=== PATIENT | female | born 1945 | race Caucasian/White ===

== ENCOUNTER → 2018-01-07 | Outpatient (CLI) | payer OTHER, BC ==
[~2018-01-07] VITALS: Ht 162.6 cm; Wt 70.3 kg
[~2018-01-07] MED LIST: ACETAMINOPHEN325 M1 OR; ALEVE220 MG PO; ASMANEX0.24 G1 INH; ASPIR 8181 M1 PO; DUONEB 2.5-0.5 M3 ML; GAVISCON LIQUI355 ML PO; IPRAT-ALBUT 0.5-3 ML INH; NEXIUM40 MG PO; PREDNISONE 10 M10 M1 PO; REGLAN 5 MG TAB5 M1 OR; SYMBICORT160 MCG/4. INH; SYNTHROID100 MC1 PO; SYNTHROID25 MC1 PO; THERA-M CAPLET1 EACH OR; VENTOLIN HFA 1818 GM INH; VENTOLIN17 GM; XANAX 0.25 MG0.25 MG PO; ZOCOR20 MG PO
--- NOTE | ~2018-01-07 | P ---
[facility] [place] [address] PROCEDURE REPORT Name: NIKIA PAGE Room #: REG [facility].#: [id number] Admission: 01/07/18 Attend Phys: Kingston Anand Discharge: Date of : 41 Report #: [id number] THIS REPORT FOR: //name// CC: Kingston King FAM unknown AMOS Clayton DATE OF SERVICE: 01/07/2018 PROCEDURE PERFORMED: Colonoscopy with biopsies. HISTORY OF PRESENT ILLNESS: The patient is a 72-year-old female with previous history of colon polyps, last colonoscopy in 1999, no immediate family members with colon cancer. DESCRIPTION OF PROCEDURE: The risks and benefits of the procedure were explained to the patient. Those risks including but not limited to bleeding, perforation and the risk of sedation. She understood these risks and gave informed consent. Sedation was given using propofol per anesthesia. Next, a digital rectal exam was initially performed, which was normal. Next, using a standard Olympus colonoscope, the scope was placed in the patient's anus and advanced under direct vision to the cecum. The overall prep was excellent. The cecum and ileocecal valve were normal in appearance. Ascending and transverse colon were normal. In the descending colon, two 3-4 mm sessile polyps were noted, both removed with cold forceps. Multiple diverticula were noted in the descending and sigmoid colon and no evidence of inflammation. The rectal mucosa was normal. On retroflexion, no abnormalities were noted. The scope was then withdrawn and the procedure terminated. The patient tolerated the procedure well. IMPRESSION: 1. Two small colonic polyps. 2. Left-sided diverticulosis. 3. Otherwise, normal colonoscopy. RECOMMENDATIONS: 1. Await biopsy results. 2. If polyps are hyperplastic, repeat in 10 years and if adenomatous polyps, repeat in 5 years. [facility] [address] [place] [address] PROCEDURE REPORT Name: PAGENIKIA MACIAS Room #: REG [facility] Piotr.#: [id number] Admission: 01/07/18 Attend Phys: Kingston Anand Discharge: Date of : 41 Report #: [id number] Thank you for allowing me to participate in her care. By: [id number] Kingston King MD /nt
--- NOTE | ~2018-01-07 | P ---
[facility] [place] [address] PROCEDURE REPORT Name: NIKIA PAGE Room #: REG [facility].#: [id number] Admission: 01/07/18 Attend Phys: Kingston Anand Discharge: Date of : 41 Report #: [id number] THIS REPORT FOR: //name// CC: Kingston King FAM unknown AMOS Clayton DATE OF SERVICE: 01/07/2018 PROCEDURE PERFORMED: Upper endoscopy with biopsies. HISTORY OF PRESENT ILLNESS: The patient is a 72-year-old female with a history of gastroesophageal reflux disease, previous history of Patrick fundoplication. She denies any dysphagia or odynophagia. She takes Zantac on a p.r.n. basis. Plan is for upper endoscopy. DESCRIPTION OF PROCEDURE: The risks and benefits of the procedure were explained to the patient and those risks including but not limited to bleeding, perforation and the risk of sedation. She understood these risks and gave informed consent. Sedation was given using propofol per anesthesia. Next, using a standard Olympus upper endoscope, the scope was placed in the patient's mouth and advanced under direct vision through the esophagus, stomach and into the second portion of the duodenum. The upper esophagus normal in appearance and the mid and distal esophagus, severe grade D erosive esophagitis was noted. Upon entering the stomach, a small hiatal hernia was noted. On retroflexion, a Patrick fundoplication changes were noted. Overall, there was a diffuse gastritis as well with multiple small erosions in the gastric antrum. Biopsies were obtained to rule out H. pylori. The pylorus was normal and patent. In the duodenal bulb, a few small clean white based superficial ulcers 2-3 mm in size were noted. The second portion of the duodenum was normal. The scope was then withdrawn and the procedure terminated. The patient tolerated the procedure well. IMPRESSION: 1. Severe grade D erosive esophagitis. 2. Small hiatal hernia. 3. Surgical changes of Patrick fundoplication noted. 4. Gastritis with gastric erosions. 5. Small duodenal ulcers. RECOMMENDATIONS: 1. Await biopsy results. 2. Recommend daily PPI therapy. 3. We would repeat upper endoscopy in 2 months' time to rule out the possibility of Vela's esophagus. [address] [address] PROCEDURE REPORT Name: PAGENIKIA MACIAS Room #: REG [facility]shaw#: [id number] Admission: 01/07/18 Attend Phys: Kingston Anand Discharge: Date of : 41 Report #: [id number] Thank you for allowing me to participate in her care. By: [id number] Kingston King MD /nt
--- NOTE | ~2018-01-07 | PATH ---
[facility] [address] [address] PATHOLOGY RPT PROCEDURE Name: NIKIA BENEDICT Maikol Room #: REG [facility] Saldaña.#: [id number] Admission: 01/07/18 Date of : 41 Discharge: Report #: [id number] Path Case #: [id number] [facility] Accession Number: [id number] . 01 Material submitted: . PART A: BX OF GASTRITIS R/O H. PYLORI PART B: POLYP AT SIGMOID COLON X2 . 01 Clinical history: . Pre-OP DX: Reflux, Hx polyps Post-OP DX: Gastritis, esophagitis, diverticulosis, colon polyps . 02 Diagnosis: A. Gastric biopsy "biopsy of gastritis": - Mild chronic reactive gastropathy. - The immunoperoxidase stain for Helicobacter pylori is negative. . B. Colonic mucosa "polyp at sigmoid colon x 2": - Fragments of hyperplastic polyps. - There is no evidence of adenomatous changes, high-grade dysplasia or malignancy. (SHA:arnel; 01/10/2018) QMS/01/10/2018 . 02 Electronically signed: . Brandon Loyd MD, Pathologist NPI- [id number] . 01 Gross description: . A. Received in formalin labeled "Nikia Benedict, BX of gastritis, rule out H. pylori," are 3 segments of garcia soft tissue measuring 0.8 x 0.4 x 0.3 cm in aggregate dimensions and ranging from 0.3 to 0.6 cm in maximum dimension. The specimen is submitted entirely in cassette A1. . B. Received in formalin labeled "Nikia Benedict, polyp at sigmoid colon x2," are 4 segments of garcia soft tissue measuring 0.9 x 0.6 x 0.2 cm in aggregate dimensions and ranging from 0.2 to 0.3 cm in maximum dimension. The specimen is submitted entirely in cassette B1. (TSD; 01/07/2018) TOB/TOB . 02 Pathologist provided ICD-10: K31.9, K63.5 . 02 CPT . 551217, 674130, I63898 Specimen Comment: A courtesy copy of this report has been sent to [address] [address] PATHOLOGY RPT PROCEDURE Name: EULA BENEDICTRoma Lassiter Room #: REG [facility].Delroy.#: [id number] Admission: 01/07/18 Date of : 41 Discharge: Report #: [id number] Path Case #: [id number] Specimen Comment: [phone], . Specimen Comment: Report sent to / DR LARES Performed at: [address], [place] [id number] MD Jarvis Whitman MD Phone: [phone] Performed at: [address] [id number] MD Radha Singh MD Phone: [phone]
== END | disposition home or self-care (01) ==
LOC: GI 06:32
DX: Z12.11 Encounter for screening for malignant neoplasm of colon (principal); Z86.010 Personal history of colon polyps; K63.5 Polyp of colon; K57.30 Diverticulosis of large intestine without perforation or abscess without bleeding; K31.9 Disease of stomach and duodenum, unspecified; K22.10 Ulcer of esophagus without bleeding; K44.9 Diaphragmatic hernia without obstruction or gangrene; K26.9 Duodenal ulcer, unspecified as acute or chronic, without hemorrhage or perforation; K21.9 Gastro-esophageal reflux disease without esophagitis; J45.909 Unspecified asthma, uncomplicated; M19.90 Unspecified osteoarthritis, unspecified site; F32.9 Major depressive disorder, single episode, unspecified; F41.9 Anxiety disorder, unspecified; Z96.652 Presence of left artificial knee joint; Z98.890 Other specified postprocedural states; Z79.899 Other long term (current) drug therapy; Z88.8 Allergy status to other drugs, medicaments and biological substances
CPT/HCPCS: 62110; 62900

== ENCOUNTER → 2018-10-21 | Outpatient (CLI) | payer OTHER, BC ==
[~2018-10-21] VITALS: Ht 162.6 cm; Wt 70.3 kg
[~2018-10-21] MED LIST changes: +PROTONIX40 M1 PO
--- NOTE | 2018-10-21 16:50 | P ---
[facility] [place] [address] PROCEDURE REPORT Name: NIKIA PAGE Room #: REG [facility] Leeann#: [id number] Admission: 10/21/18 ������������������ Attend Phys: Kingston Anand Discharge: ������������������ Date of : 41 Report #: [id number] THIS REPORT FOR: //name// CC: Kingston LARES DATE OF SERVICE: 10/21/2018 PROCEDURE PERFORMED: Upper endoscopy. HISTORY OF PRESENT ILLNESS: The patient is a 73-year-old female with a history of gastroesophageal reflux disease who underwent an upper endoscopy by myself on 01/07/2018, which showed severe grade D erosive esophagitis, at that time was taking Zantac on a p.r.n. basis. She has a previous history of a Patrick fundoplication. Biopsies of the stomach at that time showed H. pylori was negative. The patient has had a previous fundoplication. She did have small duodenal ulcers as well as gastritis on last upper endoscopy. She has now been on daily Protonix. Denies any symptoms. Here for followup. DESCRIPTION OF PROCEDURE: The risks and benefits of the procedure were explained to the patient, those risks including but not limited to bleeding, perforation and the risk of sedation. She understood these risks and gave informed consent. Sedation was given using propofol per anesthesia. Next, using a standard Olympus upper endoscope, the scope was placed in the patient's mouth and advanced under direct vision through the esophagus, stomach and into the second portion of the duodenum. The upper and mid esophagus was normal. In the distal esophagus, the previous grade D erosive esophagitis has healed significantly. She did have a small linear ulcer consistent with grade A erosive esophagitis at this time. There was no evidence of Vela's esophagus. Upon entering the stomach, once again a hiatal hernia was noted. Also, surgical changes of Patrick fundoplication noted on retroflexion. Overall, the gastric mucosa was normal other than some mild erythema. Again, previous biopsies were negative for H. pylori. No evidence of ulcerations or erosions. Pylorus was normal and patent. The duodenal bulb, first and second portion were all normal. Previous ulcers were healed. The scope was then withdrawn and the procedure terminated. The patient tolerated the procedure well. IMPRESSION: 1. Grade A erosive esophagitis. 2. Small hiatal hernia. 3. Partick fundoplication changes noted. RECOMMENDATIONS: Consider b.i.d. PPI therapy. [address] [address] PROCEDURE REPORT Name: NIKIA PAGE [id number] Admission: 10/21/18 ������������������ Attend Phys: Kingston Anand Discharge: ������������������ Date of : 41 Report #: [id number] Thank you for allowing me to participate in her care. ��������������������������������������������� <ELECTRONICALLY SIGNED> ���������������������������������������� By: Kingston King MD ��������������������������������������������� 10/21/18 [id number] [id number] Kingston King MD /nt
== END | disposition home or self-care (01) ==
LOC: GI 08-19 11:49
DX: K22.10 Ulcer of esophagus without bleeding (principal); K44.9 Diaphragmatic hernia without obstruction or gangrene; K21.9 Gastro-esophageal reflux disease without esophagitis; J45.909 Unspecified asthma, uncomplicated; E78.5 Hyperlipidemia, unspecified; F41.9 Anxiety disorder, unspecified; E03.9 Hypothyroidism, unspecified; Z98.890 Other specified postprocedural states; Z96.652 Presence of left artificial knee joint; Z79.899 Other long term (current) drug therapy; Z88.8 Allergy status to other drugs, medicaments and biological substances; Z79.82 Long term (current) use of aspirin
CPT/HCPCS: 62110; 62900